=== PATIENT | female | born 1995 | race Two or more races ===

== ENCOUNTER 2019-06-13 14:15 | Emergency (ER) | payer SELFPAY ==
[2019-06-13] MEDS ORDERED: PREDNISONE 20MG TABLET PO STA (20:35)
[2019-06-13] MEDS ORDERED: AZITHROMYCIN 500 MG TABLET PO ONE (20:45)
[2019-06-13] MEDS ORDERED: IBUPROFEN 800MG TABLET PO ONE (20:45)
[2019-06-13] MEDS ORDERED: IPRATROPIUM/ALBUTEROL 0.5-3(2.5)MG/3ML NEB HHN ONE (20:45)
[2019-06-13 22:40] VITALS: BP 119/77
== END 2019-06-13 23:37 | disposition home or self-care (01) ==
LOC: ER 14:15
DX: J40 Bronchitis, not specified as acute or chronic (principal); Z88.0 Allergy status to penicillin
CPT/HCPCS: 81025; 94640; 99283; J7512; J7620; Z7610

== ENCOUNTER 2019-08-19 00:59 | Emergency (ER) | payer MEDICAID ==
[~2019-08-19] VITALS: Ht 157.5 cm; Wt 97.0 kg
[2019-08-19] MEDS ORDERED: SODIUM CHLORIDE 0.9% 1,000 ML IV ONE (04:20)
[2019-08-19] MEDS ORDERED: ONDANSETRON HCL 4MG/2ML INJ IV STA (04:20)
[2019-08-19] MEDS ORDERED: FAMOTIDINE 20MG/2ML VIAL IV ONE (04:30)
[2019-08-19] MEDS ORDERED: ACETAMINOPHEN 325MG TABLET PO ONE (04:30)
[2019-08-19 05:33] LABS: BASOPHILS % 0.4 % (0.0-2.0); EOSINOPHILS % 0.9 % (0.0-5.0); HEMATOCRIT. 35.4 % (36.0-48.0); HEMOGLOBIN. 11.9 g/dL (12.0-16.0); MEAN CORPUSCULAR HEMOGLOBIN 27.2 pg (28.0-32.0); MEAN CORPUSCULAR VOLUME 80.8 fL (81.0-99.0); MEAN PLATELET VOLUME 10.3 fl (7.4-10.4); MONOCYTES % 3.8 % (2.0-8.0); NEUTROPHILS % 74.9 % (40.0-76.0); PLATELET 242 x1000/uL (130-400); RED BLOOD CELL COUNT 4.38 mill/uL (4.2-5.4); RED CELL DISTRIBUTION WIDTH 15.5 % (11.6-14.6)
[2019-08-19 05:45] LABS: CHLORIDE 103 mEq/L (98-107)
[2019-08-19 07:42] LABS: CLARITY URINE CLEAR (CLEAR); COLOR URINE YELLOW (YELLOW); KETONES URINE 2+ (NEGATIVE); LEUKOCYTE ESTERASE URINE NEGATIVE (NEGATIVE); NITRITE URINE NEGATIVE (NEGATIVE); OCCULT BLOOD URINE NEGATIVE (NEGATIVE); PROTEIN URINE NEGATIVE (NEGATIVE); SPECIFIC GRAVITY URINE 1.007 (1.005-1.030); UROBILINOGEN URINE 0.2 E.U./dL (0.2-1.0)
[2019-08-19 08:28] VITALS: BP 105/57
== END 2019-08-19 08:33 | disposition home or self-care (01) ==
LOC: ER 00:59
DX: O26.892 Other specified pregnancy related conditions, second trimester (principal); R11.2 Nausea with vomiting, unspecified; Z88.0 Allergy status to penicillin
CPT/HCPCS: 36415; 76805; 76857; 80053; 81003; 81025; 83690; 85025; 96361; 96374; 96375; 99285; J2405; J3490; J7030